=== PATIENT | male | born 1940 | race Caucasian/White ===

== ENCOUNTER → 2018-09-09 | Emergency (ER) | payer OTHER ==
[~2018-09-09] VITALS: Ht 170.2 cm; Wt 65.8 kg
[~2018-09-09] MED LIST: ASA81 MG; BRILINTA90 MG; LIPITOR20 MG; PRINIVIL10 MG
== END | disposition home or self-care (01) ==
LOC: EDBD 10:12 → ER 10:12
DX: K52.89 Other specified noninfective gastroenteritis and colitis (principal); E86.0 Dehydration

== ENCOUNTER 2020-04-20 08:55 | Inpatient (IN) | payer OTHER ==
[~2020-04-20 08:55] MED LIST changes: +PLAVIX75 MG; +PROTONIX40 MG; +TOPROL XL25 M1
[2020-04-20] MEDS ORDERED: PERCOCET 5-3251 EACH PO (16:04)
[2020-04-22] MEDS ORDERED: TAMS0.4C PO ×2 (08:45)
[2020-04-22] MEDS ORDERED: PERCOCET 5-3251 EACH PO (08:45)
== END 2020-04-22 09:36 | disposition home or self-care (01) | DRG 989 ==
LOC: CIR.AMB 08:55 → MEDI 18:24 → O/R 04-21 05:59 → MEDI 04-21 08:08 → O/R 04-21 08:16 → MEDI 04-21 11:42
PROVIDERS: ADMIT Surgery; ATTEND Surgery
PROC: 0VUS0JZ Supplement Penis with Synthetic Substitute, Open Approach (ICD-10-PCS; principal; 2020-04-20 10:30)
PROC: 4A12X4Z Monitoring of Cardiac Electrical Activity, External Approach (ICD-10-PCS; 2020-04-21)
DX: I97.89 Other postprocedural complications and disorders of the circulatory system, not elsewhere classified (principal); I25.119 Atherosclerotic heart disease of native coronary artery with unspecified angina pectoris; R77.8 Other specified abnormalities of plasma proteins; N52.8 Other male erectile dysfunction; Y83.8 Other surgical procedures as the cause of abnormal reaction of the patient, or of later complication, without mention of misadventure at the time of the procedure

== ENCOUNTER → 2024-07-11 | Emergency (ER) | payer OTHER ==
[~2024-07-11] VITALS: Ht 165.1 cm; Wt 65.8 kg
[~2024-07-11] MED LIST changes: +PERCOCET 5-3251 EACH PO; +TAMS0.4C PO
[2024-07-11 10:09] LABS: HEMATOCRIT 43.9 % (39.0-48.0); HEMOGLOBIN 14.9 g/dL (13-16.00); MEAN CELL VOLUME 92.7 fL (80.0-100.00); MEAN CORPUSCULAR HEMOGLOBIN 31.4 pg (27.00-32.0); MEAN CORPUSCULAR HGB CONC 33.8 g/dl (32.0-36.0); PLATELET COUNT 240 K/uL (150-450); RED BLOOD COUNT 4.74 M/uL (4.00-6.00); RED CELL DISTRIBUTION WIDTH 12.8 % (11.5-14.5)
[2024-07-11 10:25] LABS: CALCIUM 9.9 mg/dL (8.5-10.1); CREATININE SERUM 1.7 mg/dL (0.70-1.30); GFR 38.78; POTASSIUM 4.81 mEq/L (3.5-5.1)
== END | disposition home or self-care (01) ==
LOC: ER 07:39
PROVIDERS: General Practice
DX: U07.1 COVID-19 (principal); R05.8 Other specified cough; I25.118 Atherosclerotic heart disease of native coronary artery with other forms of angina pectoris; E78.00 Pure hypercholesterolemia, unspecified; I10 Essential (primary) hypertension